=== PATIENT | female | born 1985 | race Two or more races ===

== ENCOUNTER 2020-04-20 10:16 | Outpatient (CLI) | payer OTHER | END 2020-04-20 10:21 | disposition home or self-care (01) | LOC: LAB 10:16 | PROVIDERS: ATTEND Family Medicine | DX: Z00.00 Encounter for general adult medical examination without abnormal findings (principal); Z13.29 Encounter for screening for other suspected endocrine disorder; Z13.1 Encounter for screening for diabetes mellitus; Z13.6 Encounter for screening for cardiovascular disorders; Z11.3 Encounter for screening for infections with a predominantly sexual mode of transmission; E55.9 Vitamin D deficiency, unspecified ==

== ENCOUNTER 2020-11-04 09:28 | Emergency (ER) | payer OTHER ==
[~2020-11-04] VITALS: Ht 157.5 cm; Wt 104.3 kg
[2020-11-04] MEDS ORDERED: KETO10TA2 PO (13:10)
== END 2020-11-04 13:26 | disposition home or self-care (01) ==
LOC: ER 09:28
DX: S99.812A Other specified injuries of left ankle, initial encounter (principal); X58.XXXA Exposure to other specified factors, initial encounter; Y93.01 Activity, walking, marching and hiking; Y92.488 Other paved roadways as the place of occurrence of the external cause; Y99.8 Other external cause status